=== PATIENT | female | born 1965 | race Caucasian/White ===

== ENCOUNTER 2023-10-24 22:14 | Emergency (ER) | payer OTHER, SELFPAY ==
[2023-10-24 22:17] VITALS: BP 131/83
[2023-10-24 22:36] VITALS: BMI 29.7
--- NOTE | 2023-10-25 00:10 | ED.GENMED ---
History of Present Illness
General
Chief Complaint: Crisis Evaluation
Source: patient, long term and long term records
Exam Limitations: other (History of mental illness as well as brain trauma)
Time Seen by Provider: 10/24/23 23:10
Nursing documentation reviewed up to this point in time: agreed with
Travel History
Have you had any contact with someone who has COVID-19?: Unable to Answer
Do you have any symptoms of coronavirus? Fever > 100 degrees, chills, cough, shortness of breath, sore throat, loss of taste or smell, muscle aches, or headache?: Unable to Answer
History of Present Illness
History of Present Illness:
Patient is a 58-year-old female who was sent to the emergency department from a local long term where she was undergoing rehab for a right foot fracture for the past week because of increasing agitation, being uncooperative. Reportedly patient
was throwing her self on the floor and not excepting medication or assistance. Patient believes she is being phone blocked and is unable to call her psychologist and cognitive therapist. The long term said they are unable to care for her and
cannot take her back. Patient was sent to the emergency department for crisis evaluation.
Past History
Past History
ED Past Medical History: HTN, Hypercholesterolemia, Seizures, Hypothyroidism, Psychiatric (Anxiety, depression, agitation) and Other (Traumatic brain injury, overactive bladder, cognitive communication deficit)
Social History
Tobacco: Non-smoker
Review of Systems
Review of Systems
Unable to obtain full review of systems at this time due to: other (Agitation)
All Other Systems: Not applicable
Phy Exam
Physical Exam
Physical Exam:
Physical Exam
General: alert and agitated, well nourished, well hydrated
HENT: Normocephalic, supple
Eyes: Clear sclera, conjuctiva without injection
Heart: Regular rhythm and rate. No S3, S4. No murmur.
Lungs: No respiratory distress, no stridor, lung sounds clear and equal bilaterally
Abdomen: Soft, nontender, no organomegaly, no CVA tenderness, BS good
Neuro: Alert and agitated, CN II - XII intact, no motor focality
Skin: no rash
Psychiatric: interactive but agitated but is not threatening
Extremities: No edema, cyanosis, tenderness. Right foot is splinted in a posterior lower leg splint
Course
Orders/Labs/Results
Orders:
Orders
10/24/23 23:54
Crisis Consult Urgent
Reason for Consult: agitated
10/24/23 23:55
Complete Blood Count/With Diff Urgent
Comprehensive Metabolic Panel Urgent
TSH Reflex To Free T4 Urgent
Vital Signs
Initial and Last Documented VS:
Initial Vital Signs
Temp Pulse Resp BP Pulse Ox
99.0 F 99 21 131/83 95
10/24/23 22:17 10/24/23 22:17 10/24/23 22:17 10/24/23 22:17 10/24/23 22:17
Last Documented Vital Signs
Temp Pulse Resp BP Pulse Ox
99.0 F 99 21 131/83 95
10/24/23 22:17 10/24/23 22:17 10/24/23 22:17 10/24/23 22:17 10/24/23 22:17
*Radiology
Radiology exam reviewed: other (na)
*Pulse Oximetry
Patient hypoxic: no
*EKG
Interpreted by ED Provider?: NA
*Director Nursing Service Interpretation
Rate: Director Nursing Service- N/A
*Critical Care Note
Total Time (30-74mins, 75-104mins- exclusive of procedures): Not Applicable
ED Attending Note
-
Portions of this chart may have been created with voice recognition software.� Occasional wrong word or��sound alike� substitutions may have occurred due to the inherent limitations of voice recognition software.
Discharge Plan
Departure
Referrals:
Barnard,Carl A., MD [Family Provider] -
Interventions
Interventions:
*Risk Screen - Suicide Last Done: 10/24/23 22:17
*General Assessment Last Done: 10/24/23 22:17
*Neglect/Abuse Screening Last Done: 10/24/23 22:17
ED- Fall Risk Assessment Last Done: 10/24/23 22:39
*ED COVID-19 Vaccine History Last Done: 10/24/23 22:36
ED-Psychological Assessment Last Done: 10/24/23 22:36
Discharge Date and Time
Print Language: TAMAZIGHT
[2023-10-25 01:01] VITALS: BP 138/78
--- NOTE | 2023-10-25 01:44 | ED.GENMED ---
History of Present Illness
General
Chief Complaint: Crisis Evaluation
Time Seen by Provider: 10/24/23 23:10
Travel History
Have you had any contact with someone who has COVID-19?: Unable to Answer
Do you have any symptoms of coronavirus? Fever > 100 degrees, chills, cough, shortness of breath, sore throat, loss of taste or smell, muscle aches, or headache?: Unable to Answer
Past History
Past History
ED Past Medical History: HTN, Hypercholesterolemia, Seizures, Hypothyroidism, Psychiatric (Anxiety, depression, agitation) and Other (Traumatic brain injury, overactive bladder, cognitive communication deficit)
Social History
Tobacco: Non-smoker
Course
Orders/Labs/Results
Orders:
Orders
10/24/23 23:54
Crisis Consult Urgent
Reason for Consult: agitated
10/24/23 23:55
Complete Blood Count/With Diff Urgent
Comprehensive Metabolic Panel Urgent
TSH Reflex To Free T4 Urgent
Vital Signs
Initial and Last Documented VS:
Initial Vital Signs
Temp Pulse Resp BP Pulse Ox
99.0 F 99 21 131/83 95
10/24/23 22:17 10/24/23 22:17 10/24/23 22:17 10/24/23 22:17 10/24/23 22:17
Last Documented Vital Signs
Temp Pulse Resp BP Pulse Ox
99.0 F 99 21 131/83 95
10/24/23 22:17 10/24/23 22:17 10/24/23 22:17 10/24/23 22:17 10/24/23 22:17
Update Note
Update Note:
Patient seen by crisis and determined not to be eligible for 302. At this time I concur. Patient's agitated but not threat to herself further others. Will consult case management for placement as the senior living has said they will not take her
back.
ED Attending Note
-
Portions of this chart may have been created with voice recognition software.� Occasional wrong word or��sound alike� substitutions may have occurred due to the inherent limitations of voice recognition software.
Discharge Plan
Departure
Patient with high blood pressure during this ER visit?: No
Condition: Fair
Covid-19: Not Applicable
Discharge Problem:
Agitation
Referrals:
Carl Barnard MD [Family Provider] -
Interventions
Interventions:
*Risk Screen - Suicide Last Done: 10/24/23 22:17
*General Assessment Last Done: 10/24/23 22:17
*Neglect/Abuse Screening Last Done: 10/24/23 22:17
ED- Fall Risk Assessment Last Done: 10/24/23 22:39
*ED COVID-19 Vaccine History Last Done: 10/24/23 22:36
ED-Psychological Assessment Last Done: 10/24/23 22:36
Discharge Date and Time
Print Language: INDONESIAN
[2023-10-25 01:55] LABS: % Basophils 0.5 % (0-2); % Eosinophils 1.1 % (0-6); % Immature Granulocytes 0.4 % (0-0.5); % Lymphocytes 23.7 % (20.5-51.1); % Monocytes 6.4 % (1.7-9.3); % Neutrophils 67.9 % (42.2-75.2); Absolute Eosinophils 0.1 10^3/uL (0-0.7); Absolute Lymphocytes 1.9 10^3/uL (1.2-3.4); Absolute Monocytes 0.5 10^3/uL (0.1-0.6); Absolute Neutrophils 5.5 10^3/uL (1.4-6.5); Hematocrit 36.9 % (37.0-47.0); Hemoglobin 12.9 g/dL (12.0-16.0); Mean Corpuscular Volume 94.4 fL (81.0-99.0); Mean Platelet Volume 10.6 fL (7.4-10.4); Nucleated Red Blood Cells % 0 %; Platelet Count 192 10^3/uL (130-400); Red Blood Cell Count 3.91 10^6/uL (4.20-5.40); Red Cell Dist. Width 12.8 % (11.5-14.5)
[2023-10-25 02:13] LABS: ALT (SGPT) 14 U/L (0-35); AST (SGOT) 23 U/L (14-36); Albumin 4.2 g/dl (3.5-5.0); Alkaline Phosphatase 107 U/L (38-126); Blood Urea Nitrogen 19 mg/dl (7-17); Calcium 10.2 mg/dl (8.4-10.2); Carbon Dioxide 25 mmol/L (22-30); Chloride 106 mmol/L (98-107); Estimated Creatinine Clearance 88 ml/min; Glucose 105 mg/dl (70-99); Potassium 3.6 mmol/L (3.5-5.1); Sodium 142 mmol/L (135-145); Total Bilirubin 0.5 mg/dl (0.2-1.3); Total Protein 6.8 g/dl (6.3-8.2); eGFR > 60.00
[2023-10-25 02:41] LABS: TSH Reflex To Free T4 0.32 uIU/ml (0.47-4.68)
[2023-10-25 03:10] LABS: Free T4 0.93 ng/dl (0.78-2.19)
[2023-10-25 04:00] VITALS: BP 128/88
[2023-10-25] MEDS: ATIVAN 1 MG IM (04:13)
--- NOTE | 2023-10-25 04:55 | ED.CRISIS ---
ED Crisis Note
ED Crisis Note
Subjective:
Pt had been resting quietly, sleeping but I suspect, woke up, somewhat confused and abruptly became agitated, has ambulated to exam room doors, yelling, anxious, attempting to call 911.
She has hx of TBI, cognitive deficits, assisted resident of [facility] in [place].
She underwent Right foot/ankle tibial tendon repair 10/05/23 by Demian Branch. Discharged from acute care hospital to SNF 10/10/23.
Plan was for non-weight bearing until reevaluated at post-op visit 10/16/23.
Unfortunately pt was unhappy with SNF, called 911 and was taken to [facility] where she was hospitalized until d/c to SNF ([facility]) 10/18/23.
She has not had post op visit as yet.
She is sent from [facility] to ED d/t erratic/disruptive behavior.
She has been evaluated by Robbie urena, deemed not a candidate for 302 involuntary psychiatric commitment.
Plan is for case management consult in the a.m.
She apparently resides at [facility] in [place] but [place] is apparently not equipped for senior care facility care.
Objective:
Patient is awake and alert, quite abruptly agitated, anxious, yelling, confused and attempting to swing at nursing staff.
Vital signs are stable. She remains afebrile.
She has been given an IM dose of lorazepam 1 mg.
Soft restraints applied for patient as well as staff safety.
She has been transition to crisis room to initiate one-to-one observation.
A psychiatry consult has been placed for the a.m.
--- NOTE | 2023-10-25 08:41 | CM ---
Addendum entered by Isabella Crockett RN 10/25/23 09:26:
As per Temitope at [facility], patient's previous SNF was [facility] prior to her admission to [facility].
Addendum entered by Isabella Crockett RN 10/25/23 09:03:
CM left message for patient's Teacher Education Director at [facility] to discuss possible return.
Addendum entered by Isabella Crockett RN 10/25/23 08:46:
As per Temitope, [facility] would consider accepting back but will need patient's behaviors controlled prior to returning. THey are requesting a psychiatric stay prior to her return.
Original Note:
CARRINGTON reviewed medical records. CARRINGTON updated Carrie Flores RN CM director with case details. CARRINGTON spoke with crisis expressing concern that SNF placement may be very difficult. Crisis further stated that due to patient's TBI and PT needs, placement in
psych will be very difficult as well.
CARRINGTON spoke with Temitope from [facility] to request possible readmission. Temitope will speak with administration at [facility].
--- NOTE | 2023-10-25 09:02 | EDRN ---
This RN was notified that patient had lowered herself to the ground and was difficult to stand up. The patient was saturated in urine as well as the bed was saturated. This RN with assistance of two PCT changed patient and bed sheets. Patient
transferred to bed with assistance, patient is using cell phone and is cooperative at this time.
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
--- NOTE | 2023-10-25 12:15 | CON.NEURO4 ---
Addendum entered and electronically signed by Bin Dietz MD 10/25/23 14:05:
Spoke with Jaida one of the nurses at [facility], she was able to confirm that patient had last dose of Lamotrigine 100 mg the evening of 10/22, she arrived on 10/18 and was compliant with Lamotrigine since admission until missed doses of medication
the day of 10/23.
Patient in total missed 1 day (2 doses) of Lamotrigine. Will be okay to restart at 100 mg BID dosing starting now.
Original Note:
Consultation - Neurology 4
-
CONSULTING PHYSICIAN: Ej Dietz
REFERRING PHYSICIAN: ER and Psychiatry
DICTATED BY: Ej Dietz
DATE/TIME OF REQUEST: 10/25/23
DATE/TIME OF CONSULTATION: 10/25/23
Reason for Consultation: Abnormal mental status
History of Present Illness:
The patient is a 58-year-old woman with a past medical history of epilepsy status post epilepsy surgery, mood disorder, hyperlipidemia, hypothyroidism, hypertension who presents to the hospital with confusion and agitated behavior at correction
facility that she has been to since a recent right foot and ankle tibial tendon repair on 10/04.
Patient is not able to give any history regarding recent events or how she got here. She is able to relate that she had a right ankle injury recently and that she does do regular physical exercise a couple days of the week. No overt seizure
activity has been seen here.
Relevant medications include Depakote 250 mg in the morning and 500 mg at night, gabapentin 300 mg in the morning and 600 mg at night, lamotrigine 100 mg twice daily.
Unclear if patient has been taking medications reliably recently ED pharmacist is working on calling her shelter. Also listed as taking alprazolam 0.25 mg twice daily as needed for anxiety. Quetiapine 100 mg in the morning 300 mg at night.
Effexor 225 mg daily. Cyclobenzaprine 5 mg BID PRN for pain.
Psychiatry's conversation with son was that she had been at normal mental baseline until recently and mental status observed here is significant change for her. I was not able to contact her son over phone.
Past Medical History: Epilepsy, anxiety, depression, hyperlipidemia, GERD, hypertension, hypothyroidism,
Surgical History: Epilepsy brain surgery (by imaging appears to be a left temporal lobectomy),
Family History: Unknown
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
Allergies: No known drug allergies
Review of Symptoms:
Patient denies any fever, headache, chest pain, shortness of breath, GI or symptoms.
Physical Exam:
Middle-aged woman appears her stated age no signs of head or neck trauma oropharynx is clear, heart rate regular breathing unlabored abdomen soft nontender right ankle is in cast no rashes or edema seen
Neurologic Examination:
Patient is awake and alert and tracks the examiner and his conversation with the examiner. There is no evidence of drowsiness or inattention. There is no evidence of aphasia patient name simple objects consistently and can obey simple commands.
She does show disorganized speech and thought processes, sometimes answering questions with completely unrelated answers, often going on tangential lines of thinking unrelated to the topic at hand, no clear auditory or visual hallucinations and does
not appear to be responding to internal stimuli. She can grab small parts of her history such as her 2 adult children, previous history of seizures, and reports that she has 'been through a lot.' She is oriented to the month and year and current
president and previous president Shonda being controversial.
Cranial nerves show 3 mm round pupils equal reaction to light and accommodation, resting gaze midline extraocular's are full, no hemianopia to visual field confrontation test, smile is symmetric no dysarthria tongue is midline, no ptosis
Motor examination shows no rigidity or tremor normal muscle bulk and tone power is 5/5 for shoulder abduction arm flexion extension and hip flexion bilaterally.
Intact to light touch and vibration throughout
Reflexes 2+ and symmetric biceps triceps brachialis patellas and Achilles
Normal finger-nose testing bilaterally
Gait examination deferred
Neuro Imaging: CT head with left sided encephalomalacia and post surgical findings post craniotomy appears to have had a left temporal lobectomy which is a common epilepsy surgery for intractable epilepsy
Impressions
1. Likely new onset psychosis in a patient with recent ankle surgery, multiple ASSET ADMINISTRATOR acting medications at baseline, and history of epilepsy and epilepsy surgery. Could be precipitated by recent surgery and stressors of this, possibly there could
have been new medications after surgery for pain control that may be contributing or missed doses of mood stabilizers (Quetiapine, Valproic acid, Lamotrigine).
2. History of epilepsy and appears to have had a previous temporal lobectomy for control of previous intractable epilepsy, is maintained on valproic acid as well as lamotrigine which can both act as mood stabilizers as well
3. Recent right ankle surgery, unclear on whether or not she has been getting opioids or not for postoperative pain
4. There has not been indication that her current state is a post-ictal psychosis, details unclear at this time on her baseline seizure frequency
Patient has the following risk factors for their symptoms:
Recommendations:
1. Add on levels for valproic acid and lamotrigine
2. CT head obtained showing no acute pathology, shows sequelae from previous epilepsy surgery
3. Continue Valproic acid at her home dose
4. ED Pharmacy helping in calling her SNF to assess if missed doses of Lamotrigine
---If there have been more than 3-5 days of missed doses of Lamotrigine would be prudent to restart Lamotrigine at lower dose and reuptitrate back up to the 100 mg BID dose. This is to avoid the risk of Cody Femi Syndrome with lamotrigine. If
there have not been missed doses then can restart Lamotrigine at 100 mg BID dose. Valproic acid acts as inhibitor of lamotrigine metabolism.
5. Will attempt contacting family to get better estimate of her baseline seizure frequency
Discussed patient care with: Patient, Dr Keller
[2023-10-25] MEDS: DEPAKOTE (12 HR RELEASE) 250 MG PO (13:40)
[2023-10-25] MEDS: SEROQUEL 100 MG PO (13:41)
[2023-10-25] MEDS: EFFEXOR XR 225 MG PO (13:41)
--- NOTE | 2023-10-25 13:58 | PHANOTE ---
med rec note- spoke to Clementine from senior care, patient refused her night time dosing yesterday 10/24/23, but took her morning meds okay a per Clementine. put in comment about old direction. medication her change yesterday morning by senior care
crisis team before patient arrived. oxybutin stopped, seroquel change to 200mg bid from 100mg am and 300mg hs, xanax added yesterday to patient, divalproex dr 750mg bid from 250mg bid and 500mg qpm, hydromorphine added yesterday. effextor increased
to 225mg daily
--- NOTE | 2023-10-25 14:43 | ED.CRISIS ---
ED Crisis Note
ED Crisis Note
Subjective:
Patient presents for psychiatric evaluation history of epilepsy. Mood disorder. Recent admission for rehabilitation after tendon surgery. Apparently there is been some agitated behavior at the nursing facility.
Objective:
Patient currently on the floor upset. Right ankle in a splint or cast. Grossly nonfocal. Warm and dry. No respiratory distress
Assessment/Plan:
Discussed with psychiatry. Reviewed neurology note. Patient's regular medications ordered. Will add Lamictal and valproic acid level
[2023-10-25 16:16] VITALS: BP 146/80
[2023-10-25 16:51] LABS: Depakane 36.7 ug/ml (50.0-120.0)
[2023-10-25] MEDS: LAMICTAL PO (17:05)
[2023-10-25 17:45] LABS: Folate > 20.0 ng/ml (2.76-20); Vitamin B12 872 pg/ml (239-931)
[2023-10-25] MEDS: LIPITOR PO (19:10)
[2023-10-25 21:46] VITALS: BP 124/78
[2023-10-25] MEDS: NEURONTIN 600 MG PO (21:46)
[2023-10-25] MEDS: INDERAL 10 MG PO (21:46)
[2023-10-25] MEDS: DEPAKOTE (12 HR RELEASE) 500 MG PO (21:46)
[2023-10-25] MEDS: LAMICTAL 100 MG PO (21:47)
[2023-10-25] MEDS: CELEBREX 200 MG PO (21:47)
[2023-10-25] MEDS: SEROQUEL 300 MG PO (21:48)
[2023-10-26] MEDS: SYNTHROID 100 MCG PO (07:06)
[2023-10-26] MEDS: CELEBREX 200 MG PO ×2 (08:13→21:28)
[2023-10-26] MEDS: DEPAKOTE (12 HR RELEASE) 250 MG PO (08:13)
[2023-10-26] MEDS: EFFEXOR XR 225 MG PO (08:14)
[2023-10-26] MEDS: LAMICTAL 100 MG PO ×2 (08:15→21:27)
[2023-10-26] MEDS: PROTONIX 40 MG PO (08:16)
[2023-10-26] MEDS: NEURONTIN 300 MG PO (08:16)
[2023-10-26] MEDS: SEROQUEL 100 MG PO (08:16)
[2023-10-26] MEDS: INDERAL 10 MG PO (08:17)
--- NOTE | 2023-10-26 11:23 | W.PN.UPDATE ---
Update Note
Progress Note Update
patient seen chart reviewed. discussed w nursing. the patient is better than she was yesterday in terms of content of speech and organization of thought. i did not hear any of the delusional material which was noted yesterday although she was
still likely not at her baseline psychiatrically. at this point i am suspecting that decline in mental status had more to do with not having her medication than other. asked physical therapy to see her to assess ambulation. it is my
understanding that if she can ambulate from bed to br she can return to [facility] which is what she wants to do. spoke with case liner. depending on how she does with PT it is hoped she can return either to snf or to [facility]. no changes were made
in her medication.
--- NOTE | 2023-10-26 11:24 | CM ---
Addendum entered by Isabella Crockett RN 10/26/23 14:56:
CORRECTION:
[facility] FOR 10/27/2023 DISCHARGE at 10 am:
PLAN: [facility]
Report: [phone]

Addendum entered by Isabella Crockett RN 10/26/23 14:54:
Patient has been accepted back to [facility] for 10/26/2023 at 10 am discharge.
[facility]
Report: [phone]

Addendum entered by Isabella Crockett RN 10/26/23 13:51:
CM spoke with Thais at [facility]. She is unsure she can properly staff patient for safety. She is going to discuss other options like [facility] for patient.
Addendum entered by Isabella Crockett RN 10/26/23 13:33:
HP administration and DON are discuss admission to . CM will send additional referrals via [facility] to [facility], [facility] and [facility].
Addendum entered by Isabella Crockett RN 10/26/23 13:22:
CM confirmed that patient is Medicare prime and does not need an authorization for return. CM was updated that nursing wants an update on patient's behaviors prior to accepting.
Addendum entered by Isabella Crockett RN 10/26/23 12:44:
[facility] is able to accept patient back. CM will call for authorization. CM updated bedside RN.
Addendum entered by Isabella Crockett RN 10/26/23 12:35:
CM spoke with JÚNIOR Quesada at [facility]. She asserts that they are unable to take care of patient in her home. She lives alone with minimal supervision and they are unable to provide additional staff. Patient spoke with Temitope at [facility] and
they are considering accepting patient back.
Addendum entered by Isabella Crockett RN 10/26/23 11:35:
CM spoke with JÚNIOR Ye at [facility] to discuss discharge back. CM will await call from [facility] at [facility] to discuss discharge.
Original Note:
Patient has been cleared for discharge. Pending PT assessment with possible plan to return to [facility] at [facility] services.
--- NOTE | 2023-10-26 13:55 | W.PN.NEURO.1 ---
Today's Communication / Plan
-
-Continue her home doses of valproic acid and lamotrigine
-Consideration for inpatient psychiatric hospitalization given psychosis
-Follow clinical course
-No further brain imaging recommended
Neuro Assessment/Plan
Assessment
58-year-old woman with a past no history of epilepsy and left temporal lobectomy for intractable epilepsy, mood disorder, hypertension presented [facility] with agitation and [facility]
after recent right ankle surgery.
CT head shows chronic changes from a previous left temporal lobectomy which was most likely due to refractory epilepsy as a surgical treatment for epilepsy
Valproic acid level not in the toxic range
Unclear what her baseline seizure frequency is
Patient's neurologic examination consistent with psychosis, she is not showing evidence of aphasia
No concern for an autoimmune encephalitis
No concern for a new neurological process such as BOARD WINDER infection, stroke, there has not been strong suggestion that this is a postictal psychosis but that is within the realm of possibility
Subjective/Objective
Subjective Data
Date of Service: October 26, 2023
No acute events, patient conversational, no complaints, watching TV
Objective Data
Vital Signs
Temp Pulse Resp BP Pulse Ox
99.0 F 79 16 122/73 99
10/24/23 22:17 10/26/23 08:17 10/26/23 08:17 10/26/23 08:17 10/26/23 08:17
Lab Results
10/25/23 01:46
10/25/23 01:46
Sodium 142 mmol/L (135-145) 10/25/23 01:46
Potassium 3.6 mmol/L (3.5-5.1) 10/25/23 01:46
BUN 19 mg/dl (7-17) H 10/25/23 01:46
Glucose 105 mg/dl (70-99) H 10/25/23 01:46
Calcium 10.2 mg/dl (8.4-10.2) 10/25/23 01:46
Vitamin B12 872 pg/ml (239-931) 10/25/23 16:08
Patient Allergies
No Known Allergies Allergy (Unverified 10/25/23 04:13)
Review of Systems
-
History Source: Patient
All other systems: Reviewed and negative
Constitutional: No Symptoms
EENT: No Symptoms Reported
Respiratory: No Symptoms
Cardiac: No Symptoms
Abdomen/GI: No Symptoms
Genitourinary: No Symptoms
Musculoskeletal: No Symptoms
Skin: No Symptoms
Neuro: See existing Neuro Note
Endocrine: No Symptoms
Hematologic / Lymphatic: No Symptoms
Allergy / Immunology: No Symptoms
Physical Exam
-
General: No Apparent Distress
Eyes: No Ptosis
HEENT: Normocephalic
Neck: No Bruits Bilaterally
Respiratory: Clear to Auscultation
Cardiac: Regular Rhythm
GI: Normal Bowel Sounds
Skin: Unremarkable
Extremities: No Clubbing
Psych: Other (A bit better than yesterday 10/24 but still with disorganized thought processes, little insight and poor recall of recent events); Negative Anxious
Extended Neurological Exam
Attention Span & Concentration: Awake, Alert and Interactive
Memory: Reduced
Tremor: Hand Tremor Absent and Head Tremor Absent; Negative Asterixis
Involuntary Movement: None
Speech: Negative Expressive Aphasia, Receptive Aphasia or Dysarthric
Cranial Nerve II: Left Eye: Pupillary Reactivity Unremarkable and Pupillary Size Unremarkable
Cranial Nerve II: Right Eye: Pupillary Reactivity Unremarkable and Pupillary Size Unremarkable
Cranial Nerves III, IV, : Extraocular Movement: Extraocular Movement Full in all Directions
Cranial Nerve VII: Facial Symmetry: Normal Facial Symmetry
Cranial Nerve VIII: Hearing: Unremarkable Hearing to Normal Conversational Volume
Muscle Strength, Overall: Full Throughout
Muscle Bulk & Tone: Bulk Unremarkable
Pronator Drift: No Drift in Upper Extremities
Deep Tendon Reflexes: Unremarkable Throughout
Touch Sensation: Unremarkable
Data Reviewed
-
CT Head: Report Reviewed and Image Reviewed
MRI Head: Ordered and Pending
MRA Head: Ordered and Pending
Carotid Ultrasound: Ordered and Pending
EEG: Ordered and Pending
Labs: Report Reviewed
--- NOTE | 2023-10-26 14:52 | ED TECH ---
[facility] van pickup tomorrow (10/27/2023) to [facility] per case managements request.
[2023-10-26] MEDS: LIPITOR 20 MG PO (21:28)
[2023-10-26] MEDS: SEROQUEL 300 MG PO (21:28)
[2023-10-26] MEDS: DEPAKOTE (12 HR RELEASE) 500 MG PO (21:29)
[2023-10-26] MEDS: INDERAL PO ×2 (21:29→21:40)
[2023-10-26 21:31] VITALS: BP 104/58
[2023-10-26] MEDS: NEURONTIN 600 MG PO (22:29)
[2023-10-27 09:09] VITALS: BP 117/72
[2023-10-27] MEDS: NEURONTIN 300 MG PO (09:12)
[2023-10-27] MEDS: PROTONIX 40 MG PO (09:12)
[2023-10-27] MEDS: SYNTHROID 100 MCG PO (09:14)
[2023-10-27] MEDS: DEPAKOTE (12 HR RELEASE) 250 MG PO (09:14)
[2023-10-27] MEDS: LAMICTAL 100 MG PO (09:14)
[2023-10-27] MEDS: INDERAL 10 MG PO (09:15)
[2023-10-27] MEDS: CELEBREX 200 MG PO (09:15)
[2023-10-27] MEDS: EFFEXOR XR 225 MG PO (09:16)
[2023-10-27] MEDS: SEROQUEL 100 MG PO (09:16)
[2023-10-27 10:40] VITALS: BP 118/72
--- NOTE | 2023-10-27 11:00 | EDRN ---
Report called to JÚNIOR Lr at [facility]. Reviewed discharge instructions with JÚNIOR Lr.
[2023-10-27 17:21] LABS: Lamotrigine (Lamictal) 13.2 ug/mL (3.0-15.0)
== END 2023-10-27 10:40 ==
LOC: EMR 22:14
PROVIDERS: Emergency Medicine; CONSULT PHYSICIAN Psychiatry & Neurology Psychiatry; CONSULT PHYSICIAN Student in an Organized Health Care Education/Training Program; EMERGENCY PHYSICIAN Emergency Medicine; FAMILY PHYSICIAN Internal Medicine
DX: R45.1 Restlessness and agitation (principal); I10 Essential (primary) hypertension; E78.00 Pure hypercholesterolemia, unspecified; G40.909 Epilepsy, unspecified, not intractable, without status epilepticus; E03.9 Hypothyroidism, unspecified; F41.8 Other specified anxiety disorders; N32.81 Overactive bladder; R41.841 Cognitive communication deficit; K21.9 Gastro-esophageal reflux disease without esophagitis; Z79.899 Other long term (current) drug therapy; Z87.820 Personal history of traumatic brain injury
CPT/HCPCS: 70450; 80053; 80164; 80175; 82607; 82746; 84439; 84443; 85025; 93005; 96372; 99285